=== PATIENT | male | born 1990 | race Two or more races ===

== ENCOUNTER 2024-05-01 23:56 | Emergency (ER) | payer BC, OTHER ==
[~2024-05-01] VITALS: Ht 180.3 cm; Wt 81.8 kg
[~2024-05-01 23:56] MED LIST: OMEP20 PO
[2024-05-02 00:08] VITALS: BP 132/81; PULSE 78; RESP 16; TEMP 98.4; O2SAT 99
[2024-05-02] MEDS: METHOCARBAMOL 500 MG TABLET PO ONE (00:52)
[2024-05-02] MEDS: ACETAMINOPHEN 325 MG TABLET PO ONE (00:52)
[2024-05-02] MEDS: KETOROLAC TROMETHAMINE 30 MG/ML VIAL IM ONE (00:52)
== END 2024-05-02 01:44 | disposition home or self-care (01) ==
LOC: EMS 23:56
DX: M79.644 Pain in right finger(s) (principal); F12.90 Cannabis use, unspecified, uncomplicated
CPT/HCPCS: 99284; 29125; 73110; 73130; 96372; J1885